=== PATIENT | male | born 1995 | race Caucasian/White ===

== ENCOUNTER 2021-10-17 15:45 | Emergency (ER) | payer SELFPAY ==
[~2021-10-17] VITALS: Ht 172.7 cm; Wt 63.0 kg
[2021-10-17 16:00] VITALS: BP 140/74
--- NOTE | 2021-10-17 16:08 | NUR ---
PT'S WOUND CLEANED WITH NORMAL SALINE AND APPLIED DURMABOND TO PT'S WOUND PER ERMD VERBAL ORDERS.
--- NOTE | 2021-10-17 16:08 | NUR ---
PT TAKEN TO CHAIR B
--- NOTE | 2021-10-17 16:23 | NUR ---
PATIENT BIB [employer]. PATIENT EXAMINED BY DR. REYES. PATIENT MEDICALLY CLEARED AND RELEASED IN CUSTODY IN STABLE CONDITION. ORIGINAL PRE-BOOK FORM GIVEN TO OFFICER APRIL.
== END 2021-10-17 16:23 ==
LOC: MED 15:45
DX: S61.216A Laceration without foreign body of right little finger without damage to nail, initial encounter (principal); Z02.89 Encounter for other administrative examinations; V89.2XXA Person injured in unspecified motor-vehicle accident, traffic, initial encounter; Y93.89 Activity, other specified; Y92.89 Other specified places as the place of occurrence of the external cause; Y99.8 Other external cause status
CPT/HCPCS: 12001; 99283